=== PATIENT | female | born 1950 | race Caucasian/White ===

== ENCOUNTER 2018-02-06 11:30 | Day surgery (SDC) | payer OTHER ==
[2018-02-04 09:29] VITALS: BP 153/100
[2018-02-04 10:21] LABS: ALANINE AMINOTRANSFERASE 29 U/L (12-78); ALBUMIN 3.6 g/dL (3.4-5.0); ANION GAP 7 mmol/L (5-15); CALCIUM 8.2 mg/dL (8.5-10.1); CHLORIDE 107 mmol/L (98-107)
[2018-02-04 10:24] LABS: ALKALINE PHOSPHATASE 80 U/L (45-117); BILIRUBIN,TOTAL 0.6 mg/dL (0.2-1.0); CREATININE 0.99 mg/dL (0.55-1.02)
[~2018-02-06] VITALS: Ht 152.4 cm; Wt 114.7 kg
[~2018-02-06 11:30] MED LIST: ALLO100T30 PO; AMLO10TA2 PO; BISM262T7 PO; DICY20TA3 PO; FLUT9.9S NS; GUAI400T66 PO; HYDR-3307 PO; HYDR25TA6 PO; IBUP200C8 PO; INSU100I13 SC; LACT1CAP35 PO; LOSA25TA5 PO; LYSI500T PO; MAGN400T7 PO; METO-93 PO; MULT-658 PO; OMEP-110 PO; potassium PO
[2018-02-06] MEDS ORDERED: LACTATED RINGERS 1,000 ML IV SCH (12:02)
[2018-02-06] MEDS ORDERED: PROPOFOL 10 MG/ML, 50ML ONE (13:24)
== END 2018-02-06 15:30 ==
LOC: OUT 11:30
PROVIDERS: ATTEND Internal Medicine
DX: K52.9 Noninfective gastroenteritis and colitis, unspecified (principal); E11.9 Type 2 diabetes mellitus without complications; I10 Essential (primary) hypertension; F32.9 Major depressive disorder, single episode, unspecified; J44.9 Chronic obstructive pulmonary disease, unspecified; M10.9 Gout, unspecified; Z87.442 Personal history of urinary calculi; Z98.890 Other specified postprocedural states; Z90.710 Acquired absence of both cervix and uterus; Z90.49 Acquired absence of other specified parts of digestive tract; Z87.891 Personal history of nicotine dependence
CPT/HCPCS: 36415; 80053; 82962; 88305; 93005; J2704; J7120